=== PATIENT | female | born 1960 | race Caucasian/White ===

== ENCOUNTER 2017-01-17 23:40 | Emergency (ER) | payer MEDICAID ==
--- NOTE | 2017-01-17 23:56 | EDM.PDOC ---
ED HPI GENERAL MEDICAL PROBLEM - General Chief Complaint: General Stated Complaint: heart racing Time Seen by Provider: 01/17/17 23:50 Source of Information: Reports: Patient History Limitations: Reports: No Limitations - History of Present Illness INITIAL COMMENTS - FREE TEXT/NARRATIVE: States that she was sleeping and woke up and then noted that her heart was racing again. She states that this happens about twice a month since November. Has been on a drunk since when she had to put her dog down. Has a history of chronic ETOH abuse. Has been years since she was sober. Did start vomiting enroute to the ER with her friend. Has had several small emesis since being here. Denies chest pain. Stopped her metoprolol and lisinopril because the bottle was empty and she didn't refill it. Doesn't know when the last time she filled it. Admits that she doesn't eat well. Decided to come in tonight because "I was tired of it" Denies that it happens more when she is drinking more. No cough or SOB. No edema with it. Has been worked up for this and seen cardiology in the past. Had cardiolyte stress 12/05/15 that was negative. Onset: gradual Onset Date: 01/17/17 Onset Time: 21:00 Location: Reports: chest, abdomen Severity: mild Associated Symptoms: Reports: nausea/vomiting. Denies: fever/chills - Related Data Allergies Allergy/AdvReac Type Severity Reaction Status Date / Time Sulfa (Sulfonamide Allergy Nausea Verified 01/18/17 00:07 Antibiotics) tramadol Allergy Rash Verified 01/18/17 00:07 trazodone Allergy Hives Verified 01/18/17 00:07 Home Meds: Home Meds Pantoprazole [ProTONIX] 40 mg PO DAILY 12/22/14 [History] Cholecalciferol (Vitamin D3) [Vitamin D] 5,000 unit PO DAILY 01/02/16 [History] Budesonide/Formoterol [Symbicort 160-4.5 MCG] 2 puff INH BID 01/04/16 [History] Past Medical History Cardiovascular History: Reports: Afib, Heart murmur, Hypertension Respiratory History: Reports: SOB Gastrointestinal History: Reports: Chronic diarrhea, GERD Other Gastrointestinal History: hepatitis c Musculoskeletal History: Reports: Arthritis, Back pain, chronic, Fracture, Other (see below) Other Musculoskeletal History: Fractured back, fx bilateral ankles Neurological History: Reports: Concussion, Head trauma Psychiatric History: Reports: Anxiety, Depression, PTSD - Infectious Disease History Infectious Disease History: Reports: Hepatitis B, Hepatitis C - Past Surgical History HEENT Surgical History: Reports: Tonsillectomy GI Surgical History: Reports: Colonoscopy, EGD Female Surgical History: Reports: Breast biopsy Social & Family History - Tobacco Use Smoking Status *Q: Former Smoker Years of Tobacco use: 45 Packs/Tins Daily: 1 Used Tobacco, but Quit: Yes Month Tobacco Last Used: 12/2015 Second Hand Smoke Exposure: Yes - Alcohol Use Days Per Week of Alcohol Use: 7 Number of Drinks Per Day: 4 Total Drinks Per Week: 28 - Recreational Drug Use Recreational Drug Use: No Drug Use in Last 12 Months: Yes - Living Situation & Occupation Living situation: Reports: single Occupation: unemployed ED ROS GENERAL - Review of Systems Review Of Systems: See Below Constitutional: Denies: Fever, Chills Respiratory: Denies: Shortness of Breath Cardiovascular: Reports: Palpitations. Denies: Chest Pain, Dyspnea on Exertion , Edema, Lightheadedness GI/Abdominal: Reports: Nausea, Vomiting. Denies: Constipation, Diarrhea Musculoskeletal: Reports: No Symptoms Skin: Denies: Rash Neurological: Denies: Confusion, Dizziness, Headache, Syncope, Weakness ED EXAM, GENERAL - Physical Exam Exam: See Below Exam Limited By: No Limitations General Appearance: Alert, WD/WN, Mild Distress Ears: Normal External Exam, Normal Canal, Normal TMs Nose: Normal Inspection Throat/Mouth: Normal Inspection, Normal Oropharynx, No Airway Compromise Head: Atraumatic, Normocephalic Neck: Normal Inspection, Supple, Non-Tender, Full Range of Motion Respiratory/Chest: No Respiratory Distress, Lungs Clear, Normal Breath Sounds Cardiovascular: Normal Peripheral Pulses, No Edema, Irregularly Irregular GI/Abdominal: Normal Bowel Sounds, Soft, Non-Tender Extremities: Normal Inspection, Normal Range of Motion, No Pedal Edema, Normal Capillary Refill Neurological: Alert, Oriented Skin Exam: Warm, Dry, Intact, Normal Color, No Rash Course - Orders/Labs/Meds Orders: Active Orders 24 hr Category Date Time Status EKG Documentation Completion [RC] STAT Care 01/18/17 00:02 Active Chest 2V [CR] Stat Exams 01/18/17 00:02 Ordered CBC WITH AUTO DIFF [HEME] Stat Lab 01/18/17 00:02 Ordered COMPREHENSIVE METABOLIC PN,CMP [CHEM] Stat Lab 01/18/17 00:02 Ordered CREATINE KINASE,CK [CHEM] Stat Lab 01/18/17 00:02 Ordered INR,PT,PROTHROMBIN TIME [COAG] Stat Lab 01/18/17 00:02 Ordered LACTATE DEHYDROGENASE,LDH [CHEM] Stat Lab 01/18/17 00:02 Ordered PTT,PARTIAL THROMBOPLSTIN TIME [COAG] Stat Lab 01/18/17 00:02 Ordered TROPONIN I [CHEM] Stat Lab 01/18/17 00:02 Ordered Metoprolol Tartrate [Lopressor] Med 01/18/17 00:07 Once 5 mg IVPUSH ONETIME ONE Sodium Chloride 0.9% [Normal Saline] 500 ml Med 01/18/17 00:15 Ordered IV .BOLUS - Re-Assessments/Exams Free Text/Narrative Re-Assessment/Exam: 01/18/17 00:59 discussed labs with pt and friend. Heart rate has decreased after Metoprolol IV given. No further nausea noted. Is drinking water without difficulty. Wants to be discharged. Has at with Dr. Parmar in the AM. Encouraged to keep appt for follow up. Departure - Departure Time of Disposition: 01:01 Disposition: Home, Self-Care 01 Condition: good Clinical Impression: Atrial fibrillation with rapid ventricular response - Discharge Information Forms: ED Department Discharge Additional Instructions: Toprol XL 25 mg start in the AM and stay on it indefinitely until told to stop. When bottle is empty return to the Drug store for refill Keep appt with Dr. Parmar in the AM as previously scheduled Decrease the amount of drinking as this is the cause of your afib Recheck if any new concerns noted. - Problem List & Annotations (1) Atrial fibrillation with rapid ventricular response SNOMED Code(s): 435746129367424 Code(s): I48.91 - UNSPECIFIED ATRIAL FIBRILLATION Status: Acute Priority : High Current Visit: Yes - Problem List Review Problem List Initiated/Reviewed/Updated: Yes - My Orders Last 24 Hours: My Active Orders 01/18/17 00:02 EKG Documentation Completion [RC] STAT Chest 2V [CR] Stat CBC WITH AUTO DIFF [HEME] Stat COMPREHENSIVE METABOLIC PN,CMP [CHEM] Stat CREATINE KINASE,CK [CHEM] Stat INR,PT,PROTHROMBIN TIME [COAG] Stat LACTATE DEHYDROGENASE,LDH [CHEM] Stat PTT,PARTIAL THROMBOPLSTIN TIME [COAG] Stat TROPONIN I [CHEM] Stat 01/18/17 00:07 Metoprolol Tartrate [Lopressor] 5 mg IVPUSH ONETIME ONE 01/18/17 00:15 Sodium Chloride 0.9% [Normal Saline] 500 ml IV .BOLUS - Assessment/Plan Last 24 Hours: My Active Orders 01/18/17 00:02 EKG Documentation Completion [RC] STAT Chest 2V [CR] Stat CBC WITH AUTO DIFF [HEME] Stat COMPREHENSIVE METABOLIC PN,CMP [CHEM] Stat CREATINE KINASE,CK [CHEM] Stat INR,PT,PROTHROMBIN TIME [COAG] Stat LACTATE DEHYDROGENASE,LDH [CHEM] Stat PTT,PARTIAL THROMBOPLSTIN TIME [COAG] Stat TROPONIN I [CHEM] Stat 01/18/17 00:07 Metoprolol Tartrate [Lopressor] 5 mg IVPUSH ONETIME ONE 01/18/17 00:15 Sodium Chloride 0.9% [Normal Saline] 500 ml IV .BOLUS
[2017-01-18] MEDS ORDERED: Metoprolol Tartrate 5 MG/5 ML SDV IVPUSH ONE ×2 (00:07→00:52)
[2017-01-18] MEDS ORDERED: Ondansetron 4 MG/2 ML SDV IVPUSH PRN (00:09)
[2017-01-18] MEDS ORDERED: Sodium Chloride 0.9% 500 ML IV SCH (00:15)
[2017-01-18 00:23] LABS: CHLORIDE,CL 109 mEq/L (98-106); SODIUM,NA 147 mEq/L (136-145)
[2017-01-18] MEDS ORDERED: Metoprolol Tartrate 5 MG/5 ML SDV ONE (00:44)
[2017-01-18 00:54] VITALS: BP 121/79
== END 2017-01-18 01:10 | disposition home or self-care (01) ==
LOC: CC.ED 23:40
DX: I48.91 Unspecified atrial fibrillation (principal); I10 Essential (primary) hypertension; M19.90 Unspecified osteoarthritis, unspecified site; F41.9 Anxiety disorder, unspecified; K21.9 Gastro-esophageal reflux disease without esophagitis; F32.9 Major depressive disorder, single episode, unspecified; Z88.2 Allergy status to sulfonamides; Z88.5 Allergy status to narcotic agent; Z88.8 Allergy status to other drugs, medicaments and biological substances; Z79.899 Other long term (current) drug therapy; Z98.890 Other specified postprocedural states; Z87.891 Personal history of nicotine dependence
CPT/HCPCS: 36415; 71020; 80053; 82550; 83615; 84484; 85025; 85610; 85730; 93005; 96361; 96374; 96375; 99285; J2405; J7040; J3490

== ENCOUNTER 2017-05-17 20:41 | Emergency (ER) | payer MEDICAID ==
[2017-05-17 20:56] VITALS: BP 120/75
[2017-05-17] MEDS ORDERED: Hydrocortisone 1% Crm 30 GM Tube TOP ONE ×2 (21:13→21:31)
--- NOTE | 2017-05-17 21:16 | EDM.PDOC ---
ED HPI GENERAL MEDICAL PROBLEM - General Chief Complaint: Bite:Animal, Insect Stated Complaint: insect bite Time Seen by Provider: 05/17/17 20:55 Source of Information: Reports: Patient History Limitations: Reports: No Limitations - History of Present Illness INITIAL COMMENTS - FREE TEXT/NARRATIVE: Patient presents to [facility] with concerns of redness and itching to left majano. 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 Yesterday, she noted the area on her majano was red and swollen and very pruritic. She states she has been rubbing the area frequently with her heel on the other foot and now it is purple with surrounding redness. Has not noted any drainage yet at this point. Onset: Gradual Duration: Day(s): Location: Reports: Lower Extremity, Left Quality: Reports: Other (Pruritic) Severity: Mild Associated Symptoms: Denies: Fever/Chills Left Lower Leg Pain Score (Numeric/FACES): 2 - Related Data Allergies Allergy/AdvReac Type Severity Reaction Status Date / Time Sulfa (Sulfonamide Allergy Nausea Verified 05/17/17 20:46 Antibiotics) tramadol Allergy Rash Verified 05/17/17 20:46 trazodone Allergy Hives Verified 05/17/17 20:46 Home Meds: Home Meds Pantoprazole [ProTONIX] 40 mg PO DAILY 12/22/14 [History] Budesonide/Formoterol [Symbicort 160-4.5 MCG] 2 puff INH BID 01/04/16 [History] Past Medical History Cardiovascular History: Reports: Afib, Heart Murmur, Hypertension Respiratory History: Reports: SOB Gastrointestinal History: Reports: Chronic Diarrhea, GERD Other Gastrointestinal History: hepatitis c Musculoskeletal History: Reports: Arthritis, Back Pain, Chronic, Fracture Other Musculoskeletal History: Fractured back, fx bilateral ankles Neurological History: Reports: Concussion, Head Trauma Psychiatric History: Reports: Anxiety, Depression, PTSD - Infectious Disease History Infectious Disease History: Reports: Hepatitis B, Hepatitis C - Past Surgical History HEENT Surgical History: Reports: Tonsillectomy Female Surgical History: Reports: Breast Biopsy Social & Family History - Family History Family Medical History: Noncontributory - Tobacco Use Smoking Status *Q: Former Smoker Years of Tobacco use: 45 Packs/Tins Daily: 1 Used Tobacco, but Quit: Yes Month Tobacco Last Used: 12/2015 Second Hand Smoke Exposure: Yes - Caffeine Use Caffeine Use: Reports: Coffee - Alcohol Use Days Per Week of Alcohol Use: 7 Number of Drinks Per Day: 4 Total Drinks Per Week: 28 - Recreational Drug Use Recreational Drug Use: No Drug Use in Last 12 Months: Yes - Living Situation & Occupation Living situation: Reports: Single Occupation: Unemployed ED ROS GENERAL - Review of Systems Review Of Systems: ROS reveals no pertinent complaints other than HPI. ED EXAM, ANIMAL BITE - Physical Exam Exam: See Below Exam Limited By: Other (alcohol noted on breath) General Appearance: Alert, WD/WN, No Apparent Distress Extremities: Other (Patient has 3 cm circular purplish region to left majano with small puncture wound in the center with surrounding petechiae. Is nontender. No warmth or tissue redness.) Neurological: Alert, Oriented Psychiatric: Normal Affect, Normal Mood Skin Exam: Warm/Dry Course - Vital Signs Last Recorded V/S: Last Vital Signs Temp 98.4 F 05/17/17 20:41 Pulse 80 05/17/17 20:41 Resp 16 05/17/17 20:41 BP 120/75 05/17/17 20:41 Pulse Ox 97 05/17/17 20:41 - Orders/Labs/Meds Meds: Medications Discontinued Medications Generic Name Dose Route Start Last Admin Trade Name Galina PRN Reason Stop Dose Admin Hydrocortisone 0 gm 05/17/17 21:13 Hydrocortisone 1% Crm TOP 05/17/17 21:14 ASDIRECTED ONE Hydrocortisone Confirm 05/17/17 21:31 Hydrocortisone 1% Crm Administered 05/17/17 21:32 Dose 30 gm TOP .STK-MED ONE - Re-Assessments/Exams Free Text/Narrative Re-Assessment/Exam: 05/17/175 Hydrocortisone cream and a telfa applied to majano. Departure - Departure Time of Disposition: 21:24 Disposition: Home, Self-Care 01 Condition: Good Clinical Impression: Contusion Qualifiers: Encounter type: initial encounter Contusion area: lower leg Laterality: left Qualified Code(s): S80.12XA - Contusion of left lower leg, initial encounter - Discharge Information Forms: ED Department Discharge Additional Instructions: 1. Avoid further trauma to majano 2. Hydrocortisone cream to majano 2-3 times per day for itch 3. Watch for any redness, swelling or drainage. Can apply triple antibiotic ointment to the area if noted any concerns with infection 4. Follow up if any concerns
== END 2017-05-17 21:30 | disposition home or self-care (01) ==
LOC: CC.ED 20:41
DX: S80.12XA Contusion of left lower leg, initial encounter (principal); F41.9 Anxiety disorder, unspecified; M19.90 Unspecified osteoarthritis, unspecified site; K21.9 Gastro-esophageal reflux disease without esophagitis; I48.91 Unspecified atrial fibrillation; F32.9 Major depressive disorder, single episode, unspecified; I10 Essential (primary) hypertension; Z87.891 Personal history of nicotine dependence; Z88.2 Allergy status to sulfonamides; Z88.5 Allergy status to narcotic agent; Z88.6 Allergy status to analgesic agent; Z79.899 Other long term (current) drug therapy; Z90.89 Acquired absence of other organs; X58.XXXA Exposure to other specified factors, initial encounter
CPT/HCPCS: 99282

== ENCOUNTER 2017-05-29 23:36 | Emergency (ER) | payer MEDICAID ==
[2017-05-29 23:54] VITALS: BP 117/84
--- NOTE | 2017-05-30 00:17 | EDM.PDOC ---
ED HPI GENERAL MEDICAL PROBLEM - General Chief Complaint: Respiratory Problem Stated Complaint: "alcohol poisoning" Time Seen by Provider: 05/29/17 23:36 Source of Information: Reports: Patient, EMS, EMS Notes Reviewed History Limitations: Reports: No Limitations - History of Present Illness INITIAL COMMENTS - FREE TEXT/NARRATIVE: States hasn't been drinking for several weeks. Tonight and went out and had 3 cocktails of black velvet straight to celebrate a birthday. [place] like her chest became tight and she had difficulty breathing and a knot in her stomach that felt like it was pushing on her lungs making it hard to breathe. Denied having any chest pain but has history of going into afib when she binge drinks. States that Dr. Parmar wants her to have a pacemaker because of it. When she arrived here by ambulance she is laughing and joking around and states that the breathing is better and she has no chest pain. "It didn't feel like when I went into afib before" No other symptoms noted. Onset: Sudden Location: Reports: Chest, Abdomen Associated Symptoms: Reports: Shortness of Breath. Denies: Chest Pain, Cough, Nausea/Vomiting - Related Data Allergies Allergy/AdvReac Type Severity Reaction Status Date / Time Sulfa (Sulfonamide Allergy Nausea Verified 05/29/17 23:57 Antibiotics) tramadol Allergy Rash Verified 05/29/17 23:57 trazodone Allergy Hives Verified 05/29/17 23:57 Home Meds: Home Meds Pantoprazole [ProTONIX] 40 mg PO DAILY 12/22/14 [History] Budesonide/Formoterol [Symbicort 160-4.5 MCG] 2 puff INH BID 01/04/16 [History] Metoprolol Succinate 25 mg PO DAILY 05/29/17 [History] Past Medical History Cardiovascular History: Reports: Afib, Heart Murmur, Hypertension Respiratory History: Reports: SOB Gastrointestinal History: Reports: Chronic Diarrhea, GERD Other Gastrointestinal History: hepatitis c Musculoskeletal History: Reports: Arthritis, Back Pain, Chronic, Fracture Other Musculoskeletal History: Fractured back, fx bilateral ankles Neurological History: Reports: Concussion, Head Trauma Psychiatric History: Reports: Anxiety, Depression, PTSD - Infectious Disease History Infectious Disease History: Reports: Hepatitis B, Hepatitis C - Past Surgical History HEENT Surgical History: Reports: Tonsillectomy Female Surgical History: Reports: Breast Biopsy Social & Family History - Family History Family Medical History: Noncontributory - Tobacco Use Smoking Status *Q: Current Every Day Smoker Years of Tobacco use: 45 Packs/Tins Daily: 0.5 Used Tobacco, but Quit: Yes Month Tobacco Last Used: 12/2015 Second Hand Smoke Exposure: Yes - Caffeine Use Caffeine Use: Reports: Coffee - Alcohol Use Days Per Week of Alcohol Use: 7 Number of Drinks Per Day: 4 Total Drinks Per Week: 28 - Recreational Drug Use Recreational Drug Use: No Drug Use in Last 12 Months: Yes - Living Situation & Occupation Living situation: Reports: Single Occupation: Unemployed ED ROS GENERAL - Review of Systems Review Of Systems: See Below Constitutional: Denies: Fever, Chills HEENT: Reports: No Symptoms Respiratory: Reports: Shortness of Breath. Denies: Cough Cardiovascular: Denies: Chest Pain, Edema GI/Abdominal: Reports: Other (midepigastric pressure) : Reports: No Symptoms Musculoskeletal: Reports: No Symptoms Skin: Reports: No Symptoms Neurological: Reports: No Symptoms ED EXAM, GENERAL - Physical Exam Exam: See Below Exam Limited By: No Limitations General Appearance: Alert, WD/WN, No Apparent Distress Ears: Normal External Exam, Normal Canal, Normal TMs Nose: Normal Inspection Throat/Mouth: Normal Inspection, Normal Oropharynx Head: Atraumatic, Normocephalic Neck: Normal Inspection, Supple, Non-Tender, Full Range of Motion Respiratory/Chest: No Respiratory Distress, Lungs Clear, Normal Breath Sounds Cardiovascular: Normal Peripheral Pulses, Regular Rate, Rhythm, No Edema, No Murmur GI/Abdominal: Normal Bowel Sounds, Soft, Non-Tender Back Exam: Normal Inspection, Full Range of Motion Extremities: Normal Inspection, Normal Range of Motion, Non-Tender, No Pedal Edema, Normal Capillary Refill Neurological: Alert, Oriented Psychiatric: Normal Affect, Other (laughing and joking.) Skin Exam: Warm, Dry, Intact Course - Vital Signs Last Recorded V/S: Last Vital Signs Temp 97.4 F 05/29/17 23:37 Pulse 82 05/29/17 23:37 Resp 20 05/29/17 23:37 BP 117/84 05/29/17 23:37 Pulse Ox 96 05/29/17 23:37 - Orders/Labs/Meds Orders: Active Orders 24 hr Category Date Time Status EKG Documentation Completion [RC] STAT Care 05/30/17 00:08 Active D Dimer [D-DIMER QUANTITATIVE] [COAG] Stat Lab 05/29/17 23:44 Ordered Labs: Laboratory Tests 05/29/17 05/29/17 05/29/17 Range/Units 23:43 23:43 23:43 WBC 6.5 (5.0-10.0) 10^3/uL RBC 3.78 L (4.00-5.50) 10^6/uL Hgb 12.2 (12.0-16.0) g/dL Hct 36.1 L (37.0-47.0) % MCV 95.5 H (82.0-94.0) fL MCH 32.3 H (27.0-32.0) pg MCHC 33.8 (33.0-38.0) g/dL RDW Coeff of Danay 14.0 (11.0-15.0) % Plt Count 145 L (150-400) 10^3/uL Neut % (Auto) 43.9 (35-85) % Lymph % (Auto) 43.3 (10-55) % [place] % (Auto) 8.2 (0-16) % Eos % (Auto) 3.4 (0-5) % Baso % (Auto) 1.2 (0-3) % Neut # (Auto) 2.83 (1.80-7.00) 10^3/uL Lymph # (Auto) 2.80 (1.00-4.80) 10^3/uL [place] # (Auto) 0.53 (0.00-0.80) 10^3/uL Eos # (Auto) 0.22 (0.00-0.45) 10^3/uL Baso # (Auto) 0.08 10^3/uL Sodium 141 (136-145) mEq/L Potassium 3.7 (3.5-5.0) mEq/L Chloride 106 (98-106) mEq/L Carbon Dioxide 26 (21-32) mmol/L BUN 8 (7-18) mg/dL Creatinine 0.7 (0.6-1.0) mg/dL Est Cr Clr Drug Dosing 78.41 mL/min Estimated GFR (MDRD) > 60 (>=60) mL/min Glucose 120 H (75-99) mg/dL Calcium 8.6 (8.4-10.1) mg/dL Magnesium 1.7 L (1.8-2.4) mg/dL Total Bilirubin 0.5 (0.0-1.0) mg/dL AST 203 H (15-37) U/L ALT 68 (12-78) U/L Alkaline Phosphatase 233 H (46-116) U/L Lactate Dehydrogenase 229 H (100-190) U/L Creatine Kinase 75 (21-215) U/L Troponin I < 0.017 (0.00-0.06) ng/mL Total Protein 8.6 H (6.4-8.2) g/dL Albumin 3.3 L (3.4-5.0) g/dL Amylase 127 H (25-115) U/L Urine Color Yellow (YELLOW) Urine Appearance Clear (CLEAR) Urine pH 5.5 (4.5-8.0) Ur Specific [place] 1.020 (1.003-1.020) Urine Protein Negative (NEGATIVE) mg/dL Urine Glucose (UA) Negative (NEGATIVE) mg/dL Urine Ketones Negative (NEGATIVE) mg/dL Urine Occult Blood Negative (NEGATIVE) Urine Nitrite Negative (NEGATIVE) Urine Bilirubin Negative (NEGATIVE) Urine Urobilinogen 1.0 (0.2-1.0) EU/dL Ur Leukocyte Esterase Negative (NEGATIVE) Urine RBC Not seen (0-5) /HPF Urine WBC Not seen (0-5) /HPF Ur Squamous Epith Cells Few H (NOT SEEN) /HPF Calcium Oxalate Crystal Moderate H (NOT SEEN) /HPF - Re-Assessments/Exams Free Text/Narrative Re-Assessment/Exam: 05/30/17 00:50 In to discuss labs with pt and friend. Liver enzymes are elevated and she was encouraged to not drink any further alcohol and to follow up in the clinic for it. Departure - Departure Time of Disposition: 00:51 Disposition: Home, Self-Care 01 Condition: Good Clinical Impression: Elevated liver enzymes Acute alcohol intoxication Qualifiers: Complication of substance-induced condition: uncomplicated Qualified Code(s): F10.929 - Alcohol use, unspecified with intoxication, unspecified - Discharge Information Forms: ED Department Discharge Additional Instructions: Avoid alcohol Drink plenty of water Follow up with Dr. Parmar in the clinic - Problem List & Annotations (1) Acute alcohol intoxication SNOMED Code(s): 62486065 Code(s): F10.929 - ALCOHOL USE, UNSPECIFIED WITH INTOXICATION, UNSPECIFIED Status: Acute Priority: High Current Visit: Yes Qualifiers: Complication of substance-induced condition: uncomplicated Qualified Code(s ): F10.929 - Alcohol use, unspecified with intoxication, unspecified (2) Elevated liver enzymes SNOMED Code(s): 158290227 Code(s): R74.8 - ABNORMAL LEVELS OF OTHER SERUM ENZYMES Status: Acute Priority: High Current Visit: Yes - Problem List Review Problem List Initiated/Reviewed/Updated: Yes - My Orders Last 24 Hours: My Active Orders 05/29/17 23:44 D Dimer [D-DIMER QUANTITATIVE] [COAG] Stat 05/30/17 00:08 EKG Documentation Completion [RC] STAT - Assessment/Plan Last 24 Hours: My Active Orders 05/29/17 23:44 D Dimer [D-DIMER QUANTITATIVE] [COAG] Stat 05/30/17 00:08 EKG Documentation Completion [RC] STAT
[2017-05-30 00:41] LABS: CHLORIDE,CL 106 mEq/L (98-106); SODIUM,NA 141 mEq/L (136-145)
== END 2017-05-30 00:58 | disposition home or self-care (01) ==
LOC: CC.ED 23:36
DX: F10.129 Alcohol abuse with intoxication, unspecified (principal); R94.5 Abnormal results of liver function studies; I48.91 Unspecified atrial fibrillation; I10 Essential (primary) hypertension; K21.9 Gastro-esophageal reflux disease without esophagitis; F17.210 Nicotine dependence, cigarettes, uncomplicated; Z88.2 Allergy status to sulfonamides; Z88.8 Allergy status to other drugs, medicaments and biological substances; Z88.6 Allergy status to analgesic agent; Z79.899 Other long term (current) drug therapy
CPT/HCPCS: 36415; 80053; 81001; 82150; 82550; 83615; 83735; 84484; 85025; 85379; 93005; 99285

== ENCOUNTER 2017-08-05 21:00 | Observation (INO) | payer MEDICAID ==
[~2017-08-05 21:00] MED LIST: Aspirin 81 MG Tab.Chew PO ONE
[2017-08-05 21:26] LABS: CHLORIDE,CL 105 mEq/L (98-106); SODIUM,NA 140 mEq/L (136-145)
--- NOTE | 2017-08-05 21:30 | EDM.PDOC ---
ED HPI GENERAL MEDICAL PROBLEM - General Chief Complaint: Chest Pain Stated Complaint: chest pain Time Seen by Provider: 08/05/17 21:22 - History of Present Illness INITIAL COMMENTS - FREE TEXT/NARRATIVE: Patient presents today per [facility] with complaints of midepigastric and midsternal chest pain. States has not been feeling well over the last few days , very tired. Did get word today that one of her friends had unexpectedly yesterday and was in the local tavern discussing this. Admits to drinking about 3 beers but went home as she wasn't feeling well. States a "wave of discomfort passed over her from her abdomen to her chest". Was at home and felt lightheaded, friend lowered her to the floor. No injuries sustained. States her knees buckled and "then I was on the floor". She is now feeling better. Does admit to feeling "hot and flushed" during the event. No shortness of breath or nausea. Onset: Today, Gradual Duration: Hour(s): Location: Reports: Chest Quality: Reports: Ache, Dull Severity: Mild Associated Symptoms: Reports: Chest Pain, Syncope (near-syncope), Weakness. 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 - Related Data Allergies Allergy/AdvReac Type Severity Reaction Status Date / Time Sulfa (Sulfonamide Allergy Nausea Verified 08/05/17 21:18 Antibiotics) tramadol Allergy Rash Verified 08/05/17 21:18 trazodone Allergy Hives Verified 08/05/17 21:18 Home Meds: Home Meds Pantoprazole [ProTONIX] 40 mg PO DAILY 12/22/14 [History] Metoprolol Succinate 25 mg PO DAILY 05/29/17 [History] Past Medical History Cardiovascular History: Reports: Afib, Heart Murmur, Hypertension Respiratory History: Reports: SOB Gastrointestinal History: Reports: Chronic Diarrhea, GERD Other Gastrointestinal History: hepatitis c Genitourinary History: Reports: None Musculoskeletal History: Reports: Arthritis, Back Pain, Chronic, Fracture Other Musculoskeletal History: Fractured back, fx bilateral ankles Neurological History: Reports: Concussion, Head Trauma Psychiatric History: Reports: Anxiety, Depression, PTSD - Infectious Disease History Infectious Disease History: Reports: Hepatitis B, Hepatitis C - Past Surgical History HEENT Surgical History: Reports: Tonsillectomy Female Surgical History: Reports: Breast Biopsy Social & Family History - Family History Family Medical History: Noncontributory - Tobacco Use Smoking Status *Q: Current Every Day Smoker Years of Tobacco use: 45 Packs/Tins Daily: 0.5 Used Tobacco, but Quit: Yes Month Tobacco Last Used: 12/2015 Second Hand Smoke Exposure: Yes - Caffeine Use Caffeine Use: Reports: Coffee - Alcohol Use Days Per Week of Alcohol Use: 7 Number of Drinks Per Day: 4 Total Drinks Per Week: 28 - Recreational Drug Use Recreational Drug Use: No Drug Use in Last 12 Months: Yes - Living Situation & Occupation Living situation: Reports: Single Occupation: Unemployed ED ROS GENERAL - Review of Systems Review Of Systems: See Below Constitutional: Reports: Weakness. Denies: Fever, Chills, Fatigue, Decreased Appetite HEENT: Denies: Ear Pain, Sinus Problem, Throat Pain Respiratory: Denies: Shortness of Breath, Cough Cardiovascular: Reports: Chest Pain, Lightheadedness. Denies: Edema Endocrine: Reports: Fatigue GI/Abdominal: Denies: Abdominal Pain, Nausea, Vomiting : Reports: No Symptoms Musculoskeletal: Reports: No Symptoms Skin: Reports: No Symptoms Neurological: Reports: Weakness. Denies: Headache Psychiatric: Reports: No Symptoms ED EXAM, GENERAL - Physical Exam Exam: See Below Exam Limited By: Other (odor of alcohol noted but patient cooperative) General Appearance: Alert, WD/WN, No Apparent Distress Ears: Normal External Exam, Normal TMs Nose: Normal Inspection, Normal Mucosa, No Blood Throat/Mouth: Normal Inspection, Normal Oropharynx Head: Normocephalic Neck: Normal Inspection, Supple, Non-Tender Respiratory/Chest: No Respiratory Distress, Lungs Clear, Normal Breath Sounds Cardiovascular: Regular Rate, Rhythm GI/Abdominal: Normal Bowel Sounds, Soft, Tender Extremities: Normal Inspection, No Pedal Edema Neurological: Alert, Oriented Psychiatric: Normal Affect Skin Exam: Warm, Dry Course - Vital Signs Last Recorded V/S: Last Vital Signs Temp 97.5 F 08/05/17 21:05 Pulse 73 08/05/17 21:05 Resp 16 08/05/17 21:05 BP 141/91 H 08/05/17 21:05 Pulse Ox 97 08/05/17 21:05 - Orders/Labs/Meds Orders: Active Orders 24 hr Category Date Time Status EKG Documentation Completion [RC] STAT Care 08/05/17 20:56 Active Chest 2V [CR] Stat Exams 08/05/17 20:56 Taken Labs: Laboratory Tests 08/05/17 08/05/17 08/05/17 Range/Units 21:07 21:07 21:07 WBC 4.3 L (5.0-10.0) 10^3/uL RBC 3.75 L (4.00-5.50) 10^6/uL Hgb 11.5 L (12.0-16.0) g/dL Hct 33.8 L (37.0-47.0) % MCV 90.1 (82.0-94.0) fL MCH 30.7 (27.0-32.0) pg MCHC 34.0 (33.0-38.0) g/dL RDW Coeff of Danay 16.1 H (11.0-15.0) % Plt Count 121 L (150-400) 10^3/uL Neut % (Auto) 45.6 (35-85) % Lymph % (Auto) 41.7 (10-55) % [place] % (Auto) 7.6 (0-16) % Eos % (Auto) 3.5 (0-5) % Baso % (Auto) 1.6 (0-3) % Neut # (Auto) 1.97 (1.80-7.00) 10^3/uL Lymph # (Auto) 1.80 (1.00-4.80) 10^3/uL [place] # (Auto) 0.33 (0.00-0.80) 10^3/uL Eos # (Auto) 0.15 (0.00-0.45) 10^3/uL Baso # (Auto) 0.07 10^3/uL PT 12.5 H (9.7-12.3) SEC INR 1.15 (0.92-1.18) APTT 26.4 (20.0-45.0) SEC Sodium 140 (136-145) mEq/L Potassium 3.9 (3.5-5.0) mEq/L Chloride 105 (98-106) mEq/L Carbon Dioxide 25 (21-32) mmol/L BUN 6 L (7-18) mg/dL Creatinine 0.7 (0.6-1.0) mg/dL Est Cr Clr Drug Dosing 84.01 mL/min Estimated GFR (MDRD) > 60 (>=60) mL/min Glucose 99 (75-99) mg/dL Calcium 9.0 (8.4-10.1) mg/dL Lactate Dehydrogenase 230 H (100-190) U/L Creatine Kinase 80 (21-215) U/L Troponin I < 0.017 (0.00-0.06) ng/mL Meds: Medications Discontinued Medications Generic Name Dose Route Start Last Admin Trade Name Galina PRN Reason Stop Dose Admin Aspirin 324 mg 08/05/17 20:58 08/05/17 21:01 Aspirin PO 08/05/17 20:59 324 mg ONETIME ONE Administration Departure - Departure Time of Disposition: 21:49 Disposition: Refer to Observation Condition: Fair Clinical Impression: Atypical chest pain Referrals: Darrell Parmar MD [Primary Care Provider] - Forms: ED Department Discharge - Problem List & Annotations (1) Atypical chest pain SNOMED Code(s): 907429041 Code(s): R07.89 - OTHER CHEST PAIN Status: Acute Priority: High Current Visit: Yes - Problem List Review Problem List Initiated/Reviewed/Updated: Yes - My Orders Last 24 Hours: My Active Orders 08/05/17 20:56 EKG Documentation Completion [RC] STAT Chest 2V [CR] Stat - Assessment/Plan Admission H&P: Please use this note as an admission H&P Last 24 Hours: My Active Orders 08/05/17 20:56 EKG Documentation Completion [RC] STAT Chest 2V [CR] Stat Assessment:: Atypical Chest Pain Plan: Admit to observation to Dr. Parmar due to chest pain, EKG changes noted in inferior leads in comparison to EKG done in May. Will repeat enzymes, EKG in am. Blood pressure high, has not taken Metoprolol yet today so will give dose tonight and continue to monitor. Patient did have complete cardiac work up done last year. Lexiscan was normal. Carotid ultrasound normal. Echo stable. EGD did show metaplasia with suggestion of early Roberts's esophagus. Admits that she has been taking her Protonix daily. Has tried to cut back on caffeine and cigarettes but does still smoke 3/4 tram per day and drinks alcohol. Will give GI cocktail in ER to see if resolves the soreness in her abdomen. Dr. Parmar to follow patient through admission.
[2017-08-05] MEDS ORDERED: Alum Hydrox/Mag Hydrox/Simeth 30 ML, Lidocaine 2% 15 ML PO ONE ×2 (22:11)
[2017-08-05] MEDS ORDERED: Sodium Chloride 0.9% 10 ML Syringe FLUSH PRN (22:33)
[2017-08-05] MEDS ORDERED: Ondansetron 4 MG Tab.DIS PO PRN (22:33)
[2017-08-05] MEDS ORDERED: Acetaminophen 325 MG Tab PO PRN (22:33)
[2017-08-05] MEDS: METOPROLOL SUCCINATE 25 MG PO SCH (23:17)
[2017-08-05] MEDS: Nicotine 14 MG/24 Hr Patch TRDERM SCH (23:17)
[2017-08-05] MEDS: Pantoprazole 40 MG Tab.CR PO SCH (23:18)
[2017-08-06] MEDS: Pantoprazole 40 MG Tab.CR PO SCH (07:31)
[2017-08-06] MEDS: Nicotine 14 MG/24 Hr Patch TRDERM SCH (07:31)
[2017-08-06] MEDS: METOPROLOL SUCCINATE 25 MG PO SCH (07:32)
[2017-08-06 07:34] LABS: CHLORIDE,CL 106 mEq/L (98-106); SODIUM,NA 141 mEq/L (136-145)
--- NOTE | 2017-08-06 07:57 | PCM.DCSUM1 ---
Discharge Summary - Hospital Course HPI Initial Comments: Darcy is a 57 year old female who was admitted to observation on 08/05/2017 from the ER. She presented to the ER via EMS after an episode of midsternal/ epigastric chest pain. Her EKG had some changes in the anterior leads as compared from previous EKG so she was admitted observation for repeat cardiac enzymes and EKG this morning. Repeat troponin was negative. Repeat EKG showed no changes. Upon rounding this morning, patient's chest pain has resolved. She reported that she has had a lot of stress in her life recently, with the passing of a good friend and feels it was somewhat related to stress. She also reports a history of reflux and was told she will be on Protonix the "rest of her life" as she had Roberts's esophagus. She reports she has been taking her protonix, but recently ran out and needs her prescription filled. She does report alcohol use and was drinking prior to ED presentation. She does however report that she is nauseated most mornings and has some bloating in her lower pelvic region. She does not remember when her last Pap smear was. She also reports a history of atrial fibrillation and feels she has been having more episodes of a fib. She does record when she feels palpitations. She has been NSR throughout hospital stay. She is a current everyday smoker and has a chronic cough. Patient will be discharged home today. We will get a gallbladder US and pelvic US outpatient. Will also refill her protonix. Will start her on Nicotine patch daily. Patient to follow up in clinic with Dr. Parmar in two weeks. - Discharge Data Discharge Date: 08/06/17 Discharge Disposition: Home, Self-Care 01 Condition: Good - Discharge Diagnosis/Problem(s) (1) Atypical chest pain SNOMED Code(s): 382787474 ICD Code: R07.89 - OTHER CHEST PAIN Status: Acute Priority: High (2) HTN, Essential hypertension SNOMED Code(s): 23988959 ICD Code: I10 - ESSENTIAL (PRIMARY) HYPERTENSION Status: Chronic (3) H/O gastroesophageal reflux (GERD) SNOMED Code(s): 00172484239704 ICD Code: Z87.19 - PERSONAL HISTORY OF OTHER DISEASES OF THE DIGESTIVE SYSTEM Status: Chronic - Patient Instructions Diet: Heart Healthy Diet Activity: As Tolerated Notify Provider of: Fever, Increased Pain, Nausea and/or Vomiting - Discharge Plan Prescriptions/Med Rec: Nicotine [Nicotine Patch] 14 mg TD DAILY #30 patch.[id number] Pantoprazole Sodium [Protonix] 40 mg PO DAILY 30 Days #30 tablet. Home Medications: Home Meds Pantoprazole [ProTONIX] 40 mg PO DAILY 12/22/14 [History] Metoprolol Succinate 25 mg PO DAILY 05/29/17 [History] Nicotine [Nicotine Patch] 14 mg TD DAILY #30 patch.[id number] 08/06/17 [Rx] Pantoprazole Sodium [Protonix] 40 mg PO DAILY 30 Days #30 tablet. 08/06/17 [Rx ] Patient Handouts: Gastroesophageal Reflux Disease, Adult, [id number] Forms: ED Department Discharge Referrals: Darrell Parmar MD [Primary Care Provider] - - General Info Date of Service: 08/06/17 Admission Dx/Problem (Free Text: Atypical Chest Pain Hypertension Subjective Update: Patient reports she has no chest pain this morning. She does complain of nausea upon awakening each morning, none currently. Does also report some bloating in her lower abdomen. Feels she is ready to go home. Functional Status: Reports: Pain Controlled, Tolerating Diet, Ambulating, Urinating. Denies: New Symptoms - Review of Systems General: Reports: No Symptoms. Denies: Fever, Weakness, Fatigue, Chills HEENT: Reports: No Symptoms Pulmonary: Reports: Shortness of Breath (baseline), Cough (chronic). Denies: Pleuritic Chest Pain, Sputum, Hemoptysis, Wheezing Cardiovascular: Reports: Dyspnea on Exertion. Denies: Chest Pain, Palpitations , Edema, Lightheadedness Gastrointestinal: Denies: Abdominal Pain, Constipation, Decreased Appetite, Diarrhea, Difficulty Swallowing, Hematochezia, Melena, Nausea, Vomiting Genitourinary: Reports: No Symptoms Neurological: Reports: No Symptoms. Denies: Confusion, Dizziness, Headache, Numbness, Tingling, Weakness - Patient Data Vitals - Most Recent: Last Vital Signs Temp 97.6 F 08/06/17 07:46 Pulse 62 08/06/17 07:46 Resp 20 08/06/17 07:46 BP 150/95 H 08/06/17 07:46 Pulse Ox 96 08/06/17 07:46 Weight - Most Recent: 159 lb 13.362 oz Lab Results - Last 24 hrs: Laboratory Results - last 24 hr 08/06/17 08/06/17 08/06/17 Range/Units 07:00 07:00 07:00 WBC 3.5 L (5.0-10.0) 10^3/uL RBC 3.82 L (4.00-5.50) 10^6/uL Hgb 11.6 L (12.0-16.0) g/dL Hct 34.9 L (37.0-47.0) % MCV 91.4 (82.0-94.0) fL MCH 30.4 (27.0-32.0) pg MCHC 33.2 (33.0-38.0) g/dL RDW Coeff of Danay 16.3 H (11.0-15.0) % Plt Count 114 L (150-400) 10^3/uL Neut % (Auto) 44.2 (35-85) % Lymph % (Auto) 41.6 (10-55) % [place] % (Auto) 9.5 (0-16) % Eos % (Auto) 3.5 (0-5) % Baso % (Auto) 1.2 (0-3) % Neut # (Auto) 1.53 L (1.80-7.00) 10^3/uL Lymph # (Auto) 1.44 (1.00-4.80) 10^3/uL [place] # (Auto) 0.33 (0.00-0.80) 10^3/uL Eos # (Auto) 0.12 (0.00-0.45) 10^3/uL Baso # (Auto) 0.04 10^3/uL D-Dimer, Quantitative 0.64 H (0.00-0.50) Sodium 141 (136-145) mEq/L Potassium 4.1 (3.5-5.0) mEq/L Chloride 106 (98-106) mEq/L Carbon Dioxide 27 (21-32) mmol/L BUN 6 L (7-18) mg/dL Creatinine 0.7 (0.6-1.0) mg/dL Est Cr Clr Drug Dosing 84.01 mL/min Estimated GFR (MDRD) > 60 (>=60) mL/min Glucose 85 (75-99) mg/dL Calcium 8.8 (8.4-10.1) mg/dL Lactate Dehydrogenase 237 H (100-190) U/L Creatine Kinase 78 (21-215) U/L Troponin I 0.019 (0.00-0.06) ng/mL C-Reactive Protein 0.8 (0.2-0.8) mg/dL Med Orders - Current: Current Medications Acetaminophen (Tylenol) 650 mg PO Q4H PRN PRN Reason: Pain (Mild 1-3)/fever Metoprolol Succinate (Toprol Xl) 25 mg PO DAILY [facility] Last Admin: 08/06/17 07:32 Dose: 25 mg Nicotine (Habitrol) 14 mg TRDERM DAILY [facility] Last Admin: 08/06/17 07:31 Dose: 14 mg Ondansetron HCl (Zofran Odt) 4 mg PO Q4H PRN PRN Reason: nausea, able to take PO Pantoprazole Sodium (Protonix) 40 mg PO DAILY [facility] Last Admin: 08/06/17 07:31 Dose: 40 mg Sodium Chloride (Saline Flush) 10 ml FLUSH ASDIRECTED PRN PRN Reason: Keep Vein Open Discontinued Medications Aspirin (Aspirin) 324 mg PO ONETIME ONE Stop: 08/05/17 20:59 Last Admin: 08/05/17 21:01 Dose: 324 mg Al Hydroxide/Mg Hydroxide 30 (ml/ Lidocaine HCl 15 ml) 0 ml PO ONETIME ONE Stop: 08/05/17 22:12 Last Admin: 08/05/17 22:15 Dose: 45 ml - Exam Quality Assessment: Reports: DVT Prophylaxis General: Reports: Alert, Oriented, No Acute Distress HEENT: Reports: Pupils Equal, Pupils Reactive, EOMI, Mucous Membr. Moist/[place] Neck: Reports: Supple Lungs: Reports: Normal Respiratory Effort, Wheezing Cardiovascular: Reports: Regular Rate, Regular Rhythm GI/Abdominal Exam: Normal Bowel Sounds, Soft, Non-Tender, No Organomegaly, No Distention, No Abnormal Bruit, No Mass. No: Distended, Guarding, Rigid Extremities: Normal Inspection, Normal Range of Motion, Non-Tender, No Pedal Edema, Normal Capillary Refill Skin: Reports: Warm, Dry, Intact Neurological: Reports: No New Focal Deficit Psy/Mental Status: Reports: Alert, Normal Affect, Normal Mood EKG INTERPRETATION EKG Date: 08/06/17 Rhythm: NSR Rate (Beats/Min): 64 Comparison: No Change *Q Meaningful Use (DIS) - VTE *Q VTE Criteria *Q: - Stroke *Q Stroke Criteria *Q: - AMI *Q AMI Criteria *Q:
[2017-08-06] MEDS ORDERED: FLU Vacc QS 2017-18 (36mos UP)/PF 60 MCG/0.5 ML Syringe IM ONE (08:09)
[2017-08-06 08:58] VITALS: BP 150/95
--- NOTE | 2017-08-06 09:30 | PN ---
DATE: 08/06/2017 S: Darcy Jha apparently was in the bar yesterday, started having some chest pain, kind of atypical, brought here. She said she just did not feel well, little nauseated. O: NECK: Supple. CHEST: Occasional wheeze, right lung. CARDIAC: Cardiac sounds were good. ABDOMEN: Tender right upper quadrant and suprapubic area of the abdomen. LABORATORY DATA: Lab work all looks pretty good. D-dimer mildly elevated just from the lung infection and smoking. Troponins were good. CBC looked okay and mildly anemic. ASSESSMENT: PROBABLY ATYPICAL CHEST PAIN. CONCERNED ABOUT THE POSSIBILITY OF ABDOMINAL ISSUE CAUSING IT, SO ULTRASOUND OF THE GALLBLADDER; SUPRAPUBIC PELVIC PAIN, SO ULTRASOUND OF HER UTERUS. GET AN ECHOCARDIOGRAM. TALKED TO HER AT LENGTH ABOUT QUITTING SMOKING AND WE WILL SEND HER HOME ON NICODERM PATCHES. BRIGHT/MÓNICA /[id number]
== END 2017-08-06 10:45 | disposition home or self-care (01) ==
LOC: CC.ED 21:00 → CC.MS 22:31 → UNDOADMOB 22:31 → CC.MS 22:33
PROVIDERS: ADMIT Physician Assistant Medical; ATTEND General Practice
DX: R07.89 Other chest pain (principal); K21.9 Gastro-esophageal reflux disease without esophagitis; K22.70 Barrett's esophagus without dysplasia; I48.91 Unspecified atrial fibrillation; F17.200 Nicotine dependence, unspecified, uncomplicated; R05 Cough; I10 Essential (primary) hypertension; M19.90 Unspecified osteoarthritis, unspecified site; Z90.89 Acquired absence of other organs; Z79.899 Other long term (current) drug therapy; Z88.2 Allergy status to sulfonamides; Z88.8 Allergy status to other drugs, medicaments and biological substances; Z86.19 Personal history of other infectious and parasitic diseases
CPT/HCPCS: 36415; 71020; 80048; 82550; 82607; 82728; 82746; 83540; 83550; 83615; 84484; 85025; 85379; 85610; 85730; 86140; 93005; 99285; A9270; G0008; G0378; 90686

== ENCOUNTER 2018-01-03 16:45 | Emergency (ER) | payer MEDICAID ==
[2018-01-03 17:03] VITALS: BP 127/81
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
[2018-01-03] MEDS ORDERED: Potassium Chloride 10 MEQ Tab.ER PO ONE (17:30)
[2018-01-03] MEDS ORDERED: Sodium Chloride 0.9% 1,000 ML IV ONE (17:30)
[2018-01-03] MEDS ORDERED: cefTRIAXone 2 GM Vial IVPUSH ONE (17:31)
== END 2018-01-03 18:55 | disposition home or self-care (01) ==
LOC: CC.ED 16:45
DX: N39.0 Urinary tract infection, site not specified (principal); E87.6 Hypokalemia; I48.91 Unspecified atrial fibrillation; I10 Essential (primary) hypertension; Z88.2 Allergy status to sulfonamides; Z88.6 Allergy status to analgesic agent; Z87.891 Personal history of nicotine dependence
CPT/HCPCS: 36415; 80053; 81001; 82150; 85025; 87086; 87088; 87186; 96365; 96375; 99283; A9270-GY; J0696; J7030

== ENCOUNTER 2018-01-25 03:15 | Emergency (ER) | payer MEDICAID ==
[2018-01-25 03:54] VITALS: BP 146/88
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
[2018-01-25 04:27] LABS: CHLORIDE,CL 106 mEq/L (98-106); SODIUM,NA 144 mEq/L (136-145)
[2018-01-25] MEDS: LORazepam 0.5 MG Tab PO ONE (04:30)
== END 2018-01-25 09:05 | disposition home or self-care (01) ==
LOC: CC.ED 03:15
DX: F10.121 Alcohol abuse with intoxication delirium (principal); F17.210 Nicotine dependence, cigarettes, uncomplicated; I10 Essential (primary) hypertension; K21.9 Gastro-esophageal reflux disease without esophagitis; F41.9 Anxiety disorder, unspecified; F32.9 Major depressive disorder, single episode, unspecified; Z79.899 Other long term (current) drug therapy; Z88.2 Allergy status to sulfonamides; Z88.5 Allergy status to narcotic agent; Z88.8 Allergy status to other drugs, medicaments and biological substances
CPT/HCPCS: 36415; 80053; 80305; 81001; 99284; A9270

== ENCOUNTER 2018-02-18 02:05 | Emergency (ER) | payer MEDICAID ==
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
[2018-02-18] MEDS ORDERED: Lactated Ringers 1,000 ML IV ONE (02:33)
[2018-02-18 02:41] VITALS: BP 123/83
[2018-02-18 02:54] LABS: CHLORIDE,CL 104 mEq/L (98-106); SODIUM,NA 137 mEq/L (136-145)
== END 2018-02-18 03:45 ==
LOC: CC.ED 02:05
DX: T42.4X2A Poisoning by benzodiazepines, intentional self-harm, initial encounter (principal); F32.9 Major depressive disorder, single episode, unspecified; F10.10 Alcohol abuse, uncomplicated; K21.9 Gastro-esophageal reflux disease without esophagitis; I10 Essential (primary) hypertension; Z88.2 Allergy status to sulfonamides; Z88.5 Allergy status to narcotic agent; Z88.8 Allergy status to other drugs, medicaments and biological substances; Z79.899 Other long term (current) drug therapy
CPT/HCPCS: 36415; 80053; 80305; 81001; 82550; 83735; 84484; 85025; 96360; 99285; A9270-GY; G0480; J7120

== ENCOUNTER 2019-12-03 21:05 | Emergency (ER) | payer MEDICAID ==
[2019-12-03 21:52] VITALS: BP 134/94; PULSE 136
--- NOTE | 2019-12-03 21:52 | EDM.PDOC ---
ED HPI GENERAL MEDICAL PROBLEM - General Chief Complaint: General Stated Complaint: high BP Time Seen by Provider: 12/03/19 21:42 Source of Information: Reports: Patient History Limitations: Reports: No Limitations - History of Present Illness INITIAL COMMENTS - FREE TEXT/NARRATIVE: States that she fell down about 5 stairs 4 days ago and was hospitalized in the [facility] for 3 days ago and went AMA yesterday because "they weren't doing anything" for her. She drank vodka yesterday to help the left upper abd pain. She had 2 shots of vodka this AM. SHe has hydrocodone for this at home but she doesn't like to take pills. She did have broken foot on left and several broken ribs on the left. She states that the left upper abdominal pain is getting worse. She admits to daily vodka intake. Onset: Gradual Location: Reports: Abdomen Quality: Reports: Stabbing Associated Symptoms: Denies: Fever/Chills, Shortness of Breath Left Chest Pain Score (Numeric/FACES): 10 - Related Data Allergies Allergy/AdvReac Type Severity Reaction Status Date / Time Sulfa (Sulfonamide Allergy Nausea Verified 12/03/19 21:27 Antibiotics) tramadol Allergy Rash Verified 12/03/19 21:27 trazodone Allergy Hives Verified 12/03/19 21:27 Home Meds: Home Meds Metoprolol Succinate 25 mg PO DAILY 05/29/17 [History] Pantoprazole Sodium [Protonix] 40 mg PO BID 12/03/19 [History] Past Medical History Cardiovascular History: Reports: Afib, Heart Murmur, Hypertension Respiratory History: Reports: SOB Gastrointestinal History: Reports: Chronic Diarrhea, GERD Other Gastrointestinal History: hepatitis c Genitourinary History: Reports: None Musculoskeletal History: Reports: Arthritis, Back Pain, Chronic, Fracture Other Musculoskeletal History: Fractured back, fx bilateral ankles Neurological History: Reports: Concussion, Head Trauma Psychiatric History: Reports: Anxiety, Depression, PTSD - Infectious Disease History Infectious Disease History: Reports: Hepatitis C - Past Surgical History Head Surgeries/Procedures: Reports: None HEENT Surgical History: Reports: Tonsillectomy Female Surgical History: Reports: Breast Biopsy Social & Family History - Family History Family Medical History: Noncontributory - Tobacco Use Smoking Status *Q: Current Every Day Smoker Years of Tobacco use: 47 Packs/Tins Daily: 0.5 - Caffeine Use Caffeine Use: Reports: Coffee - Alcohol Use Date of Last Drink: 12/03/19 Time of Last Drink: 10:00 - Recreational Drug Use Recreational Drug Use: Yes Drug Use in Last 12 Months: No - Living Situation & Occupation Living situation: Reports: Single Occupation: Unemployed ED ROS GENERAL - Review of Systems Review Of Systems: See Below Constitutional: Denies: Fever, Chills, Night Sweats Respiratory: Reports: No Symptoms Cardiovascular: Reports: No Symptoms, Other (Has long standing history of a fib and has never been on blood thinner.) GI/Abdominal: Reports: Abdominal Pain. Denies: Constipation, Diarrhea, Hematemesis, Nausea, Vomiting : Reports: No Symptoms Musculoskeletal: Reports: Other (rib pain from falling.) Skin: Reports: No Symptoms Neurological: Reports: No Symptoms ED EXAM, GENERAL - Physical Exam Exam: See Below Exam Limited By: No Limitations General Appearance: Alert, WD/WN, Moderate Distress Ears: Normal External Exam, Normal Canal Head: Atraumatic, Normocephalic Neck: Normal Inspection, Supple, Non-Tender Respiratory/Chest: No Respiratory Distress, Lungs Clear, Normal Breath Sounds Cardiovascular: Irregularly Irregular GI/Abdominal: Normal Bowel Sounds, Soft, Distended, Tender (to the LUQ of abdomen.) Extremities: Other (left foot is ecchymotic and tender.) Neurological: Alert, Oriented Psychiatric: Normal Affect Skin Exam: Warm, Dry, Intact Course - Vital Signs Last Recorded V/S: Last Vital Signs Temp 98 F 12/03/19 21:52 Pulse 136 H 12/03/19 21:52 Resp 18 12/03/19 21:52 BP 134/94 H 12/03/19 21:52 Pulse Ox 95 12/03/19 22:50 - Orders/Labs/Meds Orders: Active Orders 24 hr Category Date Time Status Communication Order [RC] STAT Care 12/03/19 22:05 Active EKG Documentation Completion [RC] STAT Care 12/03/19 21:20 Active Abdomen Pelvis w Cont [CT] Stat Exams 12/03/19 22:01 Taken fentaNYL [Sublimaze] Med 12/03/19 22:15 Active 50 mcg IVPUSH Q6H PRN Medication Orders Fentanyl (Sublimaze) 50 mcg IVPUSH Q6H PRN PRN Reason: Abdominal Pain Last Admin: 12/03/19 22:22 Dose: 50 mcg Labs: Laboratory Tests 12/03/19 12/03/19 12/03/19 Range/Units 21:35 21:35 21:35 WBC 3.3 L (5.0-10.0) 10^3/uL RBC 3.92 L (4.00-5.50) 10^6/uL Hgb 12.2 (12.0-16.0) g/dL Hct 35.5 L (37.0-47.0) % MCV 90.6 (82.0-94.0) fL MCH 31.1 (27.0-32.0) pg MCHC 34.4 (33.0-38.0) g/dL RDW Coeff of Danay 18.7 H (11.0-15.0) % Plt Count 116 L (150-400) 10^3/uL Neut % (Auto) 48.8 (35-85) % Lymph % (Auto) 30.4 (10-55) % [place] % (Auto) 15.4 (0-16) % Eos % (Auto) 2.7 (0-5) % Baso % (Auto) 2.7 (0-3) % Neut # (Auto) 1.62 L (1.80-7.00) 10^3/uL Lymph # (Auto) 1.01 (1.00-4.80) 10^3/uL [place] # (Auto) 0.51 (0.00-0.80) 10^3/uL Eos # (Auto) 0.09 (0.00-0.45) 10^3/uL Baso # (Auto) 0.09 10^3/uL PT 13.4 H (9.7-12.3) SEC INR 1.32 H (0.92-1.18) APTT 25.7 (23.2-32.3) SEC Sodium 144 (136-145) mEq/L Potassium 3.4 L (3.5-5.0) mEq/L Chloride 106 (98-106) mEq/L Carbon Dioxide 26 (21-32) mmol/L BUN 10 (7-18) mg/dL Creatinine 0.7 (0.6-1.0) mg/dL Est Cr Clr Drug Dosing 75.65 mL/min Estimated GFR (MDRD) > 60 (>=60) mL/min Glucose 91 (75-99) mg/dL Calcium 8.4 (8.4-10.1) mg/dL Total Bilirubin 1.9 H (0.0-1.0) mg/dL AST 142 H (15-37) U/L ALT 36 (12-78) U/L Alkaline Phosphatase 182 H (46-116) U/L Lactate Dehydrogenase 293 H (100-190) U/L Creatine Kinase 51 (21-215) U/L Troponin I < 0.017 (0.00-0.06) ng/mL Total Protein 7.8 (6.4-8.2) g/dL Albumin 2.7 L (3.4-5.0) g/dL Lipase 169 (73-393) U/L Meds: Medications Generic Name Dose Route Start Last Admin Trade Name Freq PRN Reason Stop Dose Admin Fentanyl 50 mcg 12/03/19 22:15 12/03/19 22:22 Sublimaze IVPUSH 50 mcg Q6H PRN Administration Abdominal Pain Discontinued Medications Generic Name Dose Route Start Last Admin Trade Name Freq PRN Reason Stop Dose Admin Iopamidol 100 ml 12/03/19 22:32 12/03/19 22:33 [id number] (76%) IVPUSH 12/03/19 22:33 100 ml ONETIME ONE Administration - Re-Assessments/Exams Free Text/Narrative Re-Assessment/Exam: 12/03/19 22:10 Discussed lab results with the pt. Will get CT abdomen as her pain is worse. 12/03/19 23:[address] report that shows cirrhosis and spot on liver that needs to have MRI to further evaluate. She would like it done with Dr. Parmar. I will send report to him and call in the morning and have him arrange that for her. Departure - Departure Time of Disposition: 23:42 Disposition: Home, Self-Care 01 Condition: Fair Clinical Impression: LUQ abdominal tenderness Qualifiers: Presence of rebound: absent Qualified Code(s): R10.812 - Left upper quadrant abdominal tenderness Cirrhosis of liver with ascites Qualifiers: Hepatic cirrhosis type: alcoholic cirrhosis Qualified Code(s): K70.31 - Alcoholic cirrhosis of liver with ascites A-fib Qualifiers: Atrial fibrillation type: unspecified Qualified Code(s): I48.91 - Unspecified atrial fibrillation - Discharge Information *PRESCRIPTION DRUG MONITORING PROGRAM REVIEWED*: Not Applicable *COPY OF PRESCRIPTION DRUG MONITORING REPORT IN PATIENT MARY: Not Applicable Forms: ED Department Discharge Additional Instructions: increase your metoprolol to 2 pills a day as your heart rate is elevated wear boot at all times to help your healing will call Dr. Parmar tomorrow to arrange for MRI of abdomen avoid alcohol due to cirrhosis of liver Use hydrocodone for the pain as ordered in [facility] Recheck with Dr. Parmar for follow up. Sepsis Event Note - Evaluation Sepsis Screening Result: No Definite Risk - Focused Exam Vital Signs: Vital Signs Temp Pulse Resp BP Pulse Ox 12/03/19 22:50 95 12/03/19 22:30 96 12/03/19 21:52 98 F 136 H 18 134/94 H 99 12/03/19 21:37 97.7 F 134 H 18 115/86 99 12/03/19 21:22 97.7 F 131 H 20 146/111 H 95 12/03/19 21:07 98.4 F 127 H 18 154/105 H 100 Date Exam was Performed: 12/03/19 Time Exam was Performed: 23:40 - Problem List & Annotations (1) Cirrhosis of liver with ascites SNOMED Code(s): 62344613 Code(s): K74.60 - UNSPECIFIED CIRRHOSIS OF LIVER; R18.8 - OTHER ASCITES Status: Acute Current Visit: Yes Qualifiers: Hepatic cirrhosis type: alcoholic cirrhosis Qualified Code(s): K70.31 - Alcoholic cirrhosis of liver with ascites (2) Alcohol abuse SNOMED Code(s): 29530374 Code(s): F10.10 - ALCOHOL ABUSE, UNCOMPLICATED Status: Chronic Priority: Medium Current Visit: No (3) A-fib SNOMED Code(s): 68066477 Code(s): I48.91 - UNSPECIFIED ATRIAL FIBRILLATION Status: Chronic Priority: Medium Current Visit: Yes Annotation/Comment:: A fib with RVR Qualifiers: Atrial fibrillation type: unspecified Qualified Code(s): I48.91 - Unspecified atrial fibrillation (4) LUQ abdominal tenderness SNOMED Code(s): 888799370 Code(s): R10.812 - LEFT UPPER QUADRANT ABDOMINAL TENDERNESS Status: Acute Priority: High Current Visit: Yes Qualifiers: Presence of rebound: absent Qualified Code(s): R10.812 - Left upper quadrant abdominal tenderness - Problem List Review Problem List Initiated/Reviewed/Updated: Yes - My Orders Last 24 Hours: My Active Orders 12/03/19 21:20 EKG Documentation Completion [RC] STAT 12/03/19 22:01 Abdomen Pelvis w Cont [CT] Stat 12/03/19 22:05 Communication Order [RC] STAT 12/03/19 22:15 fentaNYL [Sublimaze] 50 mcg IVPUSH Q6H PRN - Assessment/Plan Last 24 Hours: My Active Orders 12/03/19 21:20 EKG Documentation Completion [RC] STAT 12/03/19 22:01 Abdomen Pelvis w Cont [CT] Stat 12/03/19 22:05 Communication Order [RC] STAT 12/03/19 22:15 fentaNYL [Sublimaze] 50 mcg IVPUSH Q6H PRN Plan: follow up with Dr. Parmar.
[2019-12-03 22:01] LABS: CHLORIDE,CL 106 mEq/L (98-106); SODIUM,NA 144 mEq/L (136-145)
[2019-12-03 22:03] LABS: PTT,PARTIAL THROMBOPLSTIN TIME 25.7 SEC (23.2-32.3)
[2019-12-03] MEDS ORDERED: fentaNYL 100 MCG/2 ML SDV IVPUSH PRN (22:15)
[2019-12-03] MEDS ORDERED: Iopamidol 755 Mg/ML 100 ML Bottle IVPUSH ONE (22:32)
== END 2019-12-04 00:16 | disposition home or self-care (01) ==
LOC: CC.ED 21:05
DX: K70.31 Alcoholic cirrhosis of liver with ascites (principal); I48.91 Unspecified atrial fibrillation; I10 Essential (primary) hypertension; K21.9 Gastro-esophageal reflux disease without esophagitis; M19.90 Unspecified osteoarthritis, unspecified site; F17.210 Nicotine dependence, cigarettes, uncomplicated; Z88.2 Allergy status to sulfonamides; Z88.5 Allergy status to narcotic agent; Z79.899 Other long term (current) drug therapy
CPT/HCPCS: 36415; 74177; 80053; 82550; 83615; 83690; 84484; 85025; 85610; 85730; 93005; 96374; 99285-25; J3010; Q9967